=== PATIENT | female | born 1955 | race Caucasian/White ===

== ENCOUNTER 2016-10-24 05:50 | Observation (INO) | payer OTHER ==
[~2016-10-24] VITALS: Ht 165.1 cm; Wt 117.0 kg
[~2016-10-24 05:50] MED LIST: ALPR0.25 PO; ALPR0.5T3 PO; GABA100C4 PO; HYDR-3583 PO; IBUP800T23 PO; PROM12.54 PO; SOMA350T PO; TRIA37.53 PO
[2016-10-24] MEDS ORDERED: LACTATED RINGER'S 1000 ML IV PRN (06:15)
[2016-10-24] MEDS ORDERED: METOPROLOL TARTRATE 25 MG TAB PO PRN (06:15)
[2016-10-24] MEDS ORDERED: SODIUM CHLOR 0.9% 1000 ML INJ 1,000 ML IV SCH (06:15)
[2016-10-24] MEDS ORDERED: VANCOMYCIN HCL 1000 MG ON-CALL/NS 250 ML IV SCH ×2 (06:15)
[2016-10-24] MEDS ORDERED: CHLORHEXIDINE GLUCONATE 2 % 1 PACK (2 CLOTHS) TOPICAL PRN (06:15)
[2016-10-24] MEDS ORDERED: INSULIN HUMAN REGULAR 1,000 UNITS/10 ML VIAL SQ PRN (06:15)
[2016-10-24] MEDS ORDERED: POVIDONE IODINE 5% (ANTISEPSIS KIT) 4 APPLICATIONS EACH NARE PRN (06:15)
[2016-10-24] MEDS ORDERED: SODIUM CHLORID 0.9% 500 ML IV PRN (06:15)
[2016-10-24 06:53] VITALS: BP 141/71; PULSE 85; RESP 18; TEMP 98.6; O2SAT 97
[2016-10-24] MEDS ORDERED: THROMBIN (TOPICAL) 5,000 UNIT VIAL ONE (07:27)
[2016-10-24] MEDS ORDERED: ceFAZolin 2 GM PREMIX 50 ML ONE (07:27)
[2016-10-24] MEDS ORDERED: MICROFIBRILLAR COLLAGEN HEMOSTAT 70 X 35 MM BANDAGE ONE (07:27)
[2016-10-24] MEDS ORDERED: GELFOAM SIZE 100 ONE (07:27)
[2016-10-24] MEDS ORDERED: GENTAMICIN SULFATE 80 MG/2 ML VIAL ONE (07:28)
[2016-10-24] MEDS ORDERED: MIDAZOLAM HCL 5 MG/5 ML VIAL ONE (08:06)
[2016-10-24] MEDS ORDERED: APREPITANT 40 MG CAP ONE (08:06)
[2016-10-24] MEDS ORDERED: LACTATED RINGER'S 1000 ML INJ 1,000 ML IV ONE (08:52)
[2016-10-24] MEDS ORDERED: PROPOFOL 200 MG/20 ML AMP IV ONE (08:52)
[2016-10-24] MEDS ORDERED: PHENYLEPH/NS 1000 MCG/10 ML SYR IV ONE (08:52)
[2016-10-24] MEDS ORDERED: NEOSTIGMINE 3 MG/3 ML SYR IV ONE (08:52)
[2016-10-24] MEDS ORDERED: ONDANSETRON HCL 4 MG/2 ML VIAL IV PUSH ONE (08:52)
[2016-10-24] MEDS ORDERED: MORPHINE SULFATE 4 MG/ML INJ IV PUSH PRN ×2 (11:45)
[2016-10-24] MEDS ORDERED: ALPRAZolam 0.25 MG TAB PO PRN (11:45)
[2016-10-24] MEDS ORDERED: ACETAMINOPHEN/HYDROcodone 325 MG/10 MG TAB PO PRN (11:45)
[2016-10-24] MEDS ORDERED: ACETAMINOPHEN 325 MG TAB PO PRN (11:45)
[2016-10-24] MEDS ORDERED: SODIUM CHLORIDE 0.9% FLUSH 5 ML FLUSH IVF PRN (11:45)
[2016-10-24] MEDS ORDERED: DO NOT ADM ANY ANTICOAGULANT DRUGS PRN (12:00)
[2016-10-24] MEDS ORDERED: DEXAMETHASONE SOD PHOS 4 MG/ML VIAL IV PUSH SCH (12:00)
[2016-10-24] MEDS ORDERED: fentaNYL CITRATE 250 MCG/5 ML AMP ONE (12:05)
[2016-10-24] MEDS ORDERED: MORPHINE SULFATE 4 MG/ML INJ ONE (12:05)
[2016-10-24] MEDS ORDERED: *morphine SULFATE 8 MG/ML PERIprocedure ONLY ONE ×2 (12:17→12:25)
[2016-10-24] MEDS: NS + KCL 20 MEQ INJ 1,000 ML IV SCH ×2 (12:20→20:53)
[2016-10-24] MEDS ORDERED: *HYDROmorphone PF 1 MG VIAL PERIprocedural Use ONLY ONE ×3 (12:35→12:59)
--- NOTE | 2016-10-24 12:54 | PD.OP ---
Operative Report Date of Surgery: October 24, 2016 Preoperative Diagnosis: Cervical spinal stenosis Postoperative Diagnosis: Cervical spinal stenosis Procedure: C5-6, C6-7 anterior cervical discectomy, interbody arthodhesis using PEEK cage filled with autologous bone graft, Simplicity plate and screws. Anesthesia: general Surgeon: Michele Tyler Mobile Sales Assistant(s): Lacie Farr Operation and Findings: INDICATIONS FOR THE PROCEDURE ms Arias is a 61 year-old female who presented with intractable neck pain and clinical evidence of C6 and C7 upper extremity radiculopathy. She was found to have significant spondylosis with stenosis. She has failed maximum nonsurgical management including multiple modalities of conservative treatment as well as pain management interventions by an interventional pain specialist. A surgical decompression and arthrodhesis were indicated. The [id number] details of the procedure, indications, alternatives, risks and potential complications were fully discussed with her. She fully understood. All The questions were answered. No guarantees were given. The patient voiced requesting the procedure and provided informed consents. The patient was offered the alternative of delaying the procedure and continuing with nonsurgical management. DETAILS OF THE SURGICAL PROCEDURE After the induction of general anesthesia, endotracheal intubation was performed. A May catheter, bilateral LYDIA hose, and sequential compression devices were placed and kept throughout the procedure. Placement of electrodes for neurophysiological monitoring of the somato sensorial evoked potentials. motor evoked potentials, and EMG as well as laryngeal nerve monitoring was achieved. The patient was positioned supine on a Earnest table with the head over a gel doughnut. All pressure points were carefully padded with eggcrate mattress. The eyes were tapped shut after ointment was applied by the anesthesiologist to prevent corneal abrasion. A Dory hugger was placed over the exposed lower body to maintain control of the core body temperature. The electrophysiological team placed the needles and electrodes in their proper location and baseline SSEP's and motor evoked potentials were registered prior and after positioning and endotracheal intubation. The anterior cervical region was prepped and draped in the usual sterile fashion. A localizing x-ray was performed with a C-arm. The surgical procedure was performed in several steps as follow: SURGICAL APPROACH A skin incision was made along the inferior cervical crease with a #10 blade. The dissection was carried out through the platysma exposing the sternocleidomastoid muscle. The cervical spine was approached following the fascial layers of the neck just medial to the anterior border of the sternocleidomastoid and carotid sheath by a combination of sharp and dull dissection. The omohyoid muscle was identified and carefully dissected laterally and the deep cervical fascia was carefully opened. The longus colli muscles were retracted to each side of the midline. A marker was placed at the disc space C5-6 and a cross-table lateral x-ray performed with a C-arm. SURGICAL DECOMPRESSION In order to decompress the anterior surface of the spinal cord it was necessary to preform a microsurgical resection of the disk at C5-6 and C6-7. At this point in the procedure the operating microscope was draped in the usual sterile fashion and brought to the field. The rest of the surgical procedure was performed using microdissection technique with the exception of the closure. Under the operative microscopic, a self-retaining retractor was placed underneath the longus colli muscle. Anterior osteophite spurs werte carefully removed with the Leksell. The annulus at C5-6 and C6-7 were incised with a #15 blade and microdiscectomy was then carefully carried out using angled curets and pituitary forceps. There were osteophitic/disk complexes mass effect and compression of the dural sac and nerve roots. The posterior longitudinal ligament was then elevated with an angled curet and incised with a 15 bladed knife. A careful resection of the posterior longitudinal ligament was carried out using a thin footplate 2 mm Kerrison. A nerve hook was used to assess the epidural space behind the vertebral bodies C5, C6, and C7 in search for residual disk fragments. The margins of the posterior endplates at C5-6 and C6- 7 were carefully drilled and undercut with a TPS drill under high magnification. The decompression was then carried out laterally, and a bilateral foraminotomy was performed with a 2mm thin foot Kerrison. Then the vertebral bodies above and below the disk space were undercut using a 2 mm thin foot Kerrison. The epidural space was the systematically assessed with a nerve hook in search for disk fragments. An excellent decompression was achieved in both, the dural sac and bilateral exiting nerve roots. The incision was then irrigated with a large amount of antibiotic solution INTERBODY ARTHRODHESIS In order to avoid collapse of the disk space which would result in bilateral foraminal stenosis, and to increase the chances of a successful fusion, it was necessary to place an interbody cage filled with autologous bone. At this point of the procedure, the superior and inferior endplates were then evenly decorticated with a TPS drill. The use of a drill in combination with a curette allowed me to systematically remove the cartilaginous endplates, exposing healthy bone for the interbody arthrodesis. Fourteen millimeters distraction pins were then placed at the vertebral bodies adjacent to the disk space, and gentle distraction was applied. The size of the interbody cage was then assessed using different size spacers, and a rasp was used to ensure no residual cartilage. A PEEK cage of the appropriate size was selected, and the interbody arthrodesis was then preformed by carefully impacting a PEEK cage filled with autologous bone graft to the disc spaces C5-6 and C6-7. An excellent position of the cage was achieved. This was was confirmed anatomically by feeling the space posterior to the implant and distance to the anterior surface of the dural sac. Radiological confirmation of the position was performed with a cross lateral xray performed with the C-arm. INTERNAL INSTRUMENTAL FIXATION Once that the interbody device was in an appropriate position, it was necessary to stabilize the spine with anterior instrumentation. Anterior instrumentation has demonstrated to increase the rate of fusion, accelerate the patient's recovery, and decrease the rate of failed interbody grafts. At this point of the procedure, the distance between the vertebral bodies was carefully measures, and a Simplicity plate was brought to the field and presented in front of the vertebral bodies C5, C6, and C7. Mediator holes were then drilled using the TPS drill, and the plate was then secured to the spine using self-drilling, self-tapping screws. Initially, the inferior right screw was inserted, followed by placement of the contralateral upper screw. The remanding screws were sequentially placed in a contra-lateral fashion. A proper purchase was achieved with all screws and the position of the cage, plate and screws, and alignment of the spine was assessed anatomically by direct visualization, and radiologically by performing a cross lateral xray of the cervical spine with the C-arm. CLOSURE The incision was irrigated with several liters of antibiotic solution. Hemostasis was achieved with a bipolar. The screws were locked to prevent backing out. A 7 mm Earnest-Marin drain was left in the prevertebral space and externalized through a separate stab incision. The incision was then closed in layers. 3-0 Vicryl with interrupted sutures was used to close the platysma and subcutaneous tissue. The skin was closed with 4-0 running subcuticular Vicryl and glue was applied to the skin. The drain was secured with a 3-0 nylon. At the end of the procedure the sponge, needle and instrument counts were all correct. The estimated blood loss was less than 70-80 cc. No blood transfusion was given. No intraoperative complications occurred. The patient received prophylactic antibiotics. The patient was then extubated and transferred to the recovery room in stable condition. Michele Tyler MD October 24, 2016 12:54
[2016-10-24] MEDS ORDERED: HYDR-3583 PO (12:55)
[2016-10-24 13:25] VITALS: BP 139/82; PULSE 86; RESP 16; TEMP 98.8; O2SAT 94
[2016-10-24] MEDS: DEXAMETHASONE SOD PHOS 4 MG/ML VIAL IV PUSH SCH ×2 (15:55→20:52)
[2016-10-24 16:00] VITALS: BP 136/64; PULSE 84; RESP 18; TEMP 96.6; O2SAT 96
--- NOTE | 2016-10-24 16:04 | HHI.DCPOC ---
Discharge Care Plan Diagnosis: (1) Status post cervical arthrodesis Goals to Promote Your Health * To prevent worsening of your condition and complications * To maintain your health at the optimal level Directions to Meet Your Goals Take your medications as prescribed Follow your dietary instruction Follow activity as directed Keep your appointments as scheduled Take your immunizations and boosters as scheduled If your symptoms worsen call your PCP, if no PCP go to Urgent Care Center or Emergency Room Smoking is Dangerous to Your Health. Avoid second hand smoke Call the 24-hour hour crisis hotline for domestic abuse at Gaby Regalado October 24, 2016 16:03
[2016-10-24] MEDS: ceFAZolin 2 GM PREMIX 50 ML IV SCH (16:40)
[2016-10-24] MEDS: ACETAMINOPHEN/HYDROcodone 325 MG/10 MG TAB PO PRN ×2 (17:44→21:58)
[2016-10-24] MEDS: CARISOPRODOL 350 MG TAB PO PRN (18:14)
[2016-10-24 19:43] VITALS: BP 130/61; PULSE 94; RESP 18; TEMP 97.2; O2SAT 92
[2016-10-24] MEDS: PROMETHAZINE HCL 25 MG TAB PO SCH (20:51)
[2016-10-24] MEDS: DOCUSATE SODIUM 100 MG CAP PO SCH (20:51)
[2016-10-24] MEDS: SODIUM CHLORIDE 0.9% FLUSH 5 ML FLUSH IVF SCH (20:53)
[2016-10-24] MEDS ORDERED: ALPRAZolam 0.5 MG TAB PO SCH (21:00)
[2016-10-24] MEDS ORDERED: GABAPENTIN 100 MG CAP PO SCH (21:00)
[2016-10-24 21:29] LABS: BICARBONATE 25.5 MEQ/L (21.0-32.0); POTASSIUM 4.3 MEQ/L (3.5-5.1)
[2016-10-24 23:28] VITALS: BP 106/52; PULSE 89; RESP 18; TEMP 96.8; O2SAT 96
[2016-10-25] MEDS: DEXAMETHASONE SOD PHOS 4 MG/ML VIAL IV PUSH SCH ×3 (02:12→14:17)
[2016-10-25] MEDS: ceFAZolin 2 GM PREMIX 50 ML IV SCH ×2 (02:12→10:01)
[2016-10-25] MEDS: ACETAMINOPHEN/HYDROcodone 325 MG/10 MG TAB PO PRN ×4 (02:14→18:02)
[2016-10-25 04:07] VITALS: BP 123/56; PULSE 83; RESP 18; TEMP 97.7; O2SAT 94
[2016-10-25] MEDS: NS + KCL 20 MEQ INJ 1,000 ML IV SCH ×2 (06:16→14:14)
[2016-10-25] MEDS: CARISOPRODOL 350 MG TAB PO PRN ×2 (06:16→14:17)
[2016-10-25 07:17] VITALS: BP 120/57; PULSE 83; RESP 18; TEMP 97; O2SAT 95
[2016-10-25] MEDS ORDERED: PANTOPRAZOLE SOD 40 MG DELAYED RELEASE TAB PO SCH (09:00)
[2016-10-25] MEDS: SODIUM CHLORIDE 0.9% FLUSH 5 ML FLUSH IVF SCH (09:00)
[2016-10-25] MEDS ORDERED: TRIAMTERENE/HCTZ 37.5 MG/25 MG CAP PO SCH (09:00)
[2016-10-25 09:20] VITALS: O2SAT 93
[2016-10-25] MEDS: PROMETHAZINE HCL 25 MG TAB PO SCH (10:00)
[2016-10-25] MEDS: DOCUSATE SODIUM 100 MG CAP PO SCH (10:01)
[2016-10-25 11:41] VITALS: BP 137/66; PULSE 69; RESP 20; TEMP 97; O2SAT 91
[2016-10-25 12:00] VITALS: O2SAT 97
--- NOTE | 2016-10-25 13:44 | PD.CONS ---
HPI Service [facility] Hospitalists Consult Requested By Dr. Tyler Reason for Consult Medical Management Primary Care Physician Marsha Berumen Jr, MD Diagnoses: History of Present Illness Ms. Arias is a pleasant 59 y/o female with osteoarthritis, HTN, hyperlipidemia, hypothyroidism, fibromyalgia, and GERD. Pt admitted by Dr. Tyler 10/24/16 and underwent C5-6, C6-7 anterior cervical discectomy, interbody arthrodesis using PEEK cage filled with autologous bone graft, Simplicity plate and screws. Pt is receiving prn norco for pain and is planning to go to [facility] following discharge. Review of Systems Constitutional: DENIES: Diaphoretic episodes, Fatigue, Fever, Weight gain, Weight loss, Chills, Dizziness, Change in appetite, Night Sweats Endocrine: DENIES: Heat/cold intolerance, Polydipsia, Polyuria, Polyphagia Eyes: DENIES: Blurred vision, Diplopia, Eye inflammation, Eye pain, Vision loss , Photosensitivity, Double Vision Ears, nose, mouth, throat: DENIES: Tinnitus, Hearing loss, Vertigo, Nasal discharge, Oral lesions, Throat pain, Hoarseness, Ear Pain, Running Nose, Epistaxis, Sinus Pain, Toothache, Odynophagia Respiratory: DENIES: Apneas, Cough, Snoring, Wheezing, Hemoptysis, Sputum production, Shortness of breath Cardiovascular: DENIES: Chest pain, Palpitations, Syncope, Dyspnea on Exertion , PND, Lower Extremity Edema, Orthopnea, Claudication Gastrointestinal: DENIES: Abdominal pain, Black stools, Bloody stools, BRB per rectum, Constipation, Diarrhea, GERD, Nausea, Reflux, Vomiting, Difficulty Swallowing, Anorexia Genitourinary: COMPLAINS OF: Dysmenorrhea, DENIES: Urinary frequency, Urinary incontinence, Urgency, Hematuria, Dysuria, Nocturia Musculoskeletal: DENIES: Joint pain, Muscle aches, Stiffness, Joint Swelling, Back pain, Neck pain Integumentary: DENIES: Abnormal pigmentation, Pruritus, Rash, Nail changes, Breast masses, Breast skin changes, Nipple discharge Hematologic/lymphatic: DENIES: Bruising, Lymphadenopathy Immunologic/allergic: DENIES: Eczema, Urticaria Neurologic: DENIES: Abnormal gait, Headache, Localized weakness, Paresthesias, Seizures, Speech Problems, Tremor, Poor Balance Psychiatric: DENIES: Anxiety, Confusion, Mood changes, Depression, Hallucinations, Agitation, Suicidal Ideation, Homicidal Ideation, Delusions, History of Bipolar, History of Schizophrenia Past Family Social History Past Medical History Adrenal cortical adenoma Anxiety HTN Chondrocalcinosis of the lower leg DDD Depression Diabetes mellitus Fibromyalgia GERD Hyperlipidemia Hypothyroidism Morbid obesity Osteoarthritis LUDMILA Thyroid nodule Vertigo Vitamin D deficiency Past Surgical History Appendectomy Right foot surgery MAUREEN Left knee surgery Reported Medications Reported Meds & Active Scripts Active Hydrocodone-Acetaminophen 10-325 mg Tab 1 Tab PO Q8HR PRN Reported Promethazine (Promethazine HCl) 12.5 Mg Tab 25 Mg PO BID Triamterene-Hydrochlorothiazide 37.5-25 Mg Cap 1 Cap PO DAILY Soma (Carisoprodol) 350 Mg Tab 350 Mg PO Q8HR PRN Hydrocodone-Acetaminophen 10-325 mg Tab 1 Tab PO Q6H PRN Alprazolam 0.5 Mg Tab 0.5 Mg PO HS Ibuprofen 800 Mg Tab 800 Mg PO TID Alprazolam 0.25 Mg Tab 1 Tab PO BID PRN Gabapentin 100 Mg Cap 1 Cap PO HS Allergies: Coded Allergies: Flu Vaccine (Verified Allergy, Severe, Swelling IN ARM AND FEVER, 10/24/16) Neurontin (Unverified Allergy, Severe, SEIZURES WHEN ON DOSES, 10/24/16) Pneumococcal Vaccine (Verified Allergy, Severe, ARM SWELLING , FEVER, 10/24) Prednisone (Verified Allergy, Severe, SIGNIFICANT WT GAIN AND FLUID RETENTION, 10/24/16) WEIGHT GAIN Shrimp (Unverified Allergy, Severe, EXACERBATES FIBROMYALGIA, 10/24/16) Sulfa (Verified Allergy, Unknown, hives, 10/24/16) Inderal (Verified Adverse Reaction, Severe, vomiting, 10/24/16) Family History Noncontributory Social History - Pt is a current smoker - Pt denies alcohol - Pt denies illicit street drugs Physical Exam Vital Signs Vital Signs Date Time Temp Pulse Resp B/P Pulse Ox O2 Delivery O2 Flow Rate FiO2 10/25/16 11:41 97.0 69 20 137/66 91 10/25/16 09:20 93 21 10/25/16 07:17 97.0 83 18 120/57 95 10/25/16 04:07 97.7 83 18 123/56 94 10/24/16 23:28 96.8 89 18 106/52 96 10/24/16 21:11 Room Air 10/24/16 19:43 97.2 94 18 130/61 92 10/24/16 18:56 Nasal Cannula 2.00 10/24/16 16:00 96.6 84 18 136/64 96 Physical Exam GENERAL: This is a well-nourished, well-developed patient, in no apparent distress. SKIN: No rashes, ecchymoses or lesions. Cool and dry. HEAD: Atraumatic. Normocephalic. No temporal or scalp tenderness. EYES: Pupils equal round and reactive. Extraocular motions intact. No scleral icterus. No injection or drainage. ENT: Nose without bleeding, purulent drainage or septal hematoma. Throat without erythema, tonsillar hypertrophy or exudate. Uvula midline. Airway patent. NECK: Trachea midline. No JVD or lymphadenopathy. Supple, nontender, no meningeal signs. CARDIOVASCULAR: Regular rate and rhythm without murmurs, gallops, or rubs. RESPIRATORY: Clear to auscultation. Breath sounds equal bilaterally. No wheezes , rales, or rhonchi. GASTROINTESTINAL: Abdomen soft, non-tender, nondistended. No hepato-splenomegaly , or palpable masses. No guarding. MUSCULOSKELETAL: Extremities without clubbing, cyanosis, or edema. No joint tenderness, effusion, or edema noted. No calf tenderness. Negative Homans sign bilaterally. NEUROLOGICAL: Awake and alert. Cranial nerves II through XII intact. Motor and sensory grossly within normal limits. Five out of 5 muscle strength in all muscle groups. Normal speech. Laboratory Laboratory Tests Test 10/24/16 19:59 Sodium Level 137 Potassium Level 4.3 Chloride Level 102 Carbon Dioxide Level 25.5 Anion Gap 10 Blood Urea Nitrogen 17 Creatinine 1.17 Estimat Glomerular Filtration 47 Rate Random Glucose 210 Calcium Level 8.3 Result Diagram: 10/24/161958 Assessment and Plan Problem List: (1) Degenerative arthritis of cervical spine Status: Acute Plan: - Pt underwent C5-6, C6-7 anterior cervical discectomy, interbody arthodhesis using PEEK cage filled with autologous bone graft, Simplicity plate and screws. performed by Dr. Tyler 10/24/16 - norco prn - decadron - PT - DVT prophylaxis - Pt will transfer to [facility] upon discharge (2) Hypertension, benign Status: Chronic Plan: - stable - triamterene (3) Fibromyalgia Status: Chronic Plan: - norco prn (4) Diabetes mellitus type 2, diet-controlled Status: Acute Plan: - ADA Ricardo Srinivasan DO October 25, 2016 13:44
[2016-10-25] MEDS ORDERED: SOMA350T PO (13:59)
[2016-10-25] MEDS ORDERED: ALPR0.5T3 PO (13:59)
[2016-10-25] MEDS ORDERED: ALPR0.25 PO (13:59)
[2016-10-25 16:00] VITALS: BP 142/64; PULSE 78; RESP 20; TEMP 97.4; O2SAT 94
[2016-10-25] MEDS ORDERED: SOD PHOSPHATE/SOD BIPHOSPHATE (ADULT) ENEMA 133ML RECTAL ONE (16:00)
--- NOTE | 2016-10-28 14:37 | HHI.DS ---
Discharge Summary Admission Date October 24, 2016 at 11:44 Discharge Date: October 25, 2016 Admitting Diagnosis s/p ACDF (1) Degenerative arthritis of cervical spine ICD Code: M47.812 (2) Hypertension, benign ICD Code: I10 (3) Fibromyalgia ICD Code: M79.7 (4) Diabetes mellitus type 2, diet-controlled ICD Code: E11.9 Brief History Ms. Arias is a 61 year-old female who presented with intractable neck pain and clinical evidence of C6 and C7 upper extremity radiculopathy. She was found to have significant spondylosis with stenosis. She has failed maximum nonsurgical management including multiple modalities of conservative treatment as well as pain management interventions by an interventional pain specialist. A surgical decompression and arthrodesis were indicated. CBC/BMP: 10/24/161958 Hospital Course Ms. Arias underwent a C5-6, C6-7 anterior cervical discectomy, interbody arthrodesis using PEEK cage filled with autologous bone graft, plate and screws on October 24, 2016. Her surgery went well without complications. She was cleared medically for discharge. Pt Condition on Discharge: Stable Discharge Disposition: Discharge to SNF Discharge Instructions DIET: Follow Instructions for: Heart Healthy Diet ACTIVITIES You can perform: Weight Bearing As Deric ADDITIONAL Activity Instructio: Avoid strenuous activities, heavy lifting, overhead activities, repetitive bending, twisting, pushing, pulling or any activities which might result in stress over the spine. Avoid situtation that will put at risk for falls. Use assistive device as needed for walking. Wear cervical collar at all times, may remove only with meals. Follow up Referrals: Neurosurgery - 2 Weeks with Michele Tyler MD PCP Follow-up - [address] Marsha Barragan New Medications: Hydrocodone-Acetaminophen (Hydrocodone-Acetaminophen) 10-325 mg Tab 1 TAB PO Q8HR PRN PAIN SCALE 1 TO 5 #90 TAB Continued Medications: Alprazolam (Alprazolam) 0.25 Mg Tab 1 TAB PO BID PRN ANXIETY #60 Ref 1 MG (This prescription has been renewed) Alprazolam (Alprazolam) 0.5 Mg Tab 0.5 MG PO HS Anxiety and/or Insomnia #30 Ref 1 TAB (This prescription has been renewed) Carisoprodol (Soma) 350 Mg Tab 350 MG PO Q8HR PRN PAIN #60 Ref 0 TAB (This prescription has been renewed) Gabapentin (Gabapentin) 100 Mg Cap 1 CAP PO HS #90 Hydrocodone-Acetaminophen (Hydrocodone-Acetaminophen) 10-325 mg Tab 1 TAB PO Q6H PRN PAIN Ref 0 TAB Promethazine (Promethazine) 12.5 Mg Tab 25 MG PO BID NAUSEA OR VOMITING Ref 0 TAB Triamterene-Hydrochlorothiazide (Triamterene-Hydrochlorothiazide) 37.5-25 Mg Cap 1 CAP PO DAILY #30 Ref 0 CAP Discontinued Medications: Ibuprofen (Ibuprofen) 800 Mg Tab 800 MG PO TID Arthritis Pain Ref 0 TAB Gaby Regalado October 28, 2016 14:37
== END 2016-10-25 19:00 ==
LOC: HSDC 05:50 → HSDI 11:44 → N06A 13:30
PROVIDERS: ADMIT Neurological Surgery; ATTEND Neurological Surgery
DX: M48.02 Spinal stenosis, cervical region (principal); M54.12 Radiculopathy, cervical region
CPT/HCPCS: 00600; 20936; 22551; 22552; 22853; 76000; 80048; 94150; 97162; C1713; G0378; G8987; G8988; J0690; J1100; J1170; J1580; J2250; J2270; J2370; J2405; J2710; J3010; J3370; J3480; J7050; J7120; J8501; L0150; L0172; Q0169

== ENCOUNTER 2017-12-25 17:00 | Observation (INO) ==
--- NOTE | 2017-12-25 19:45 | XR ---
EXAM DATE: 12/25/2017 7:42 PM EDT AGE/SEX: 62 years / Female INDICATIONS: Shortness of breath and chest pressure. CLINICAL DATA: This is the patient's initial encounter. Patient reports that signs and symptoms have been present for 1 day and indicates a pain score of 5/10. MEDICAL/SURGICAL HISTORY: . Fibromyalgia. None. COMPARISON: [facility], CHEST PA & LAT, 12/29/2014. . FINDINGS: The heart size is borderline enlarged. The lungs are clear. No effusion is seen. Surgical hardware se en in the cervical spine. CONCLUSION: Borderline cardiomegaly. Electronically signed by: Viral Rick MD 12/25/2017 7:44 PM EDT
[2017-12-25 20:02] LABS: Baso # (Auto) 0.1 th/mm3 (0.0-0.2); Baso % (Auto) 0.9 % (0.0-2.0); Eos # (Auto) 0.1 th/mm3 (0.0-0.4); Hemoglobin 12.8 gm/dL (11.6-15.3); Lymph # (Auto) 3.7 th/mm3 (1.0-4.8); Lymph % (Auto) 31.7 % (9.0-44.0); Mean Corpuscular HGB Conc 32.8 % (32.0-36.0); Mean Corpuscular Hemoglobin 29.3 pg (27.0-34.0); Mean Corpuscular Volume 89.3 fL (80.0-100.0); Mean Platelet Volume 10.9 fL (7.0-11.0); Mono # (Auto) 0.6 th/mm3 (0.0-0.9); Mono % (Auto) 4.9 % (0.0-8.0); Neut # (Auto) 7.3 th/mm3 (1.8-7.7); Neut % (Auto) 61.5 % (16.0-70.0); Platelet Count 265 th/mm3 (150-450); Red Blood Count 4.36 mil/mm3 (4.00-5.30); Red Cell Distribution Width 15.6 % (11.6-17.2); White Blood Count 11.8 th/mm3 (4.0-11.0)
[2017-12-25 20:15] LABS: Activated Partial Thrombo Time 22.6 sec (24.3-30.1); INR 0.9 Ratio; Prothrombin Time 9.6 sec (9.8-11.6)
[2017-12-25 20:25] LABS: Anion Gap 7 meq/L (5-15); Blood Urea Nitrogen 33 mg/dL (7-18); Calcium 9.5 mg/dL (8.5-10.1); Carbon Dioxide 29.4 meq/L (21.0-32.0); Chloride 102 meq/L (98-107); Glomerular Filtration Rate 28 mL/min (>89); Glucose,Random 140 mg/dL (74-106); Potassium 3.5 meq/L (3.5-5.1); Sodium 138 meq/L (136-145)
--- NOTE | 2017-12-25 20:26 | ED ---
HPI General Chief complaint: Recheck/Abnormal Lab/Rx Stated complaint: cardiac Time Seen by Provider: 12/25/17 19:15 Source: patient, family and RN notes reviewed Mode of arrival: ambulatory History of Present Illness HPI narrative: 62yF sent in by PMD for elevated D dimer. The patient states that she's had abdominal "bloating" and dyspnea for the past several weeks, has been having a series of tests with her primary care doctor, and received a phone call today that her D dimer was elevated and directing her to go to the emergency department for further evaluation. She denies cough but reports dyspnea at rest and on exertion, episodes of substernal chest "discomfort" and palpitations which are unrelated to activity. No known history of VTE, does not take any anticoagulants or antiplatelets. Related Data Home Medications Medication Instructions Recorded Confirmed albuterol sulfate 2.5 mg INHALATION Q4H PRN 12/25/17 12/25/17 alprazolam 0.25 mg PO BID PRN 12/25/17 12/25/17 carisoprodol 350 mg PO Q8HR PRN 12/25/17 12/25/17 cyanocobalamin (vitamin B-12) 1,000 mcg PO DAILY 12/25/17 12/25/17 [Vitamin B-12] gabapentin 300 mg PO TID 12/25/17 12/25/17 hydrocodone-acetaminophen 1 tab PO Q6H PRN 12/25/17 12/25/17 ibuprofen 800 mg PO TID PRN 12/25/17 12/25/17 promethazine 25 mg PO Q6H PRN 12/25/17 12/25/17 triamterene-hydrochlorothiazid 1 cap PO DAILY 12/25/17 12/25/17 Allergies Allergy/AdvReac Type Severity Reaction Status Date / Time gabapentin Allergy Severe SEIZURES Verified 12/25/17 17:25 WHEN ON DOSES Influenza Virus Vaccines Allergy Severe Swelling Verified 12/25/17 17:25 IN ARM AND FEVER pneumococcal vaccine Allergy Severe ARM Verified 12/25/17 17:25 SWELLING , FEVER prednisone Allergy Severe SIGNIFICANT Verified 12/25/17 17:25 WT GAIN AND FLUID RETENTION shrimp Allergy Severe EXACERBATES Verified 12/25/17 17:25 FIBROMYALGIA Sulfa (Sulfonamide Allergy Unknown hives Verified 12/25/17 17:25 Antibiotics) propranolol AdvReac Severe vomiting Verified 12/25/17 17:25 Review of Systems Except as stated in HPI: all other systems reviewed are negative Constitutional Reports chills ENT Denies nasal congestion Cardiovascular Reports chest pain Respiratory Reports cough Gastrointestinal Reports nausea Genitourinary Denies dysuria Musculoskeletal Denies back pain Neurologic Denies confusion Psychiatric Denies confusion [facility] History History Provided By: Patient Medical History Medical History Fibromyalgia (Acute) High cholesterol (Acute) Surgical History Surgical History Hx of knee surgery (Acute) Hx of neck surgery (Acute) Social History Social History Second Hand Smoke Exposure: Yes Smoking Status: Current every day smoker Tobacco Type: Cigarettes How Often Do You Have a Drink Containing Alcohol: Never Recent Travel in [facility] within the Last 8 Weeks: No Recent Out of Country Travel within the Last 8 Weeks: No Immunization History Tetanus Immunization: Unsure Hx Influenza Vaccine This Season: No Exam Const General: healthy appearing and no acute distress HENWV Head: normocephalic and atraumatic Face and sinus: normal facial exam Eyes General: appearance normal, both eyes and all related structures Pupils: PERRL Chest Chest: normal inspection of the chest Resp Effort & Inspection: normal respiratory effort Auscultation: no rhonchi and no wheezes Cardio Rate: regular rate Rhythm: regular rhythm GI Other: Distended, soft, non-tender throughout Skin General: no rashes or lesions noted Neuro General: alert, awake, oriented x3 and no focal motor deficits Extrem Other: 1+ pitting edema bilaterally Psych Affect: normal affect Course Initial Documented Vital Signs Temperature 98.9 F 12/25/17 17:20 Pulse Rate 108 H 12/25/17 17:20 Respiratory Rate 18 12/25/17 17:20 Blood Pressure 168/77 H 12/25/17 17:20 Pulse Oximetry 94 L 12/25/17 17:20 Last Documented Vital Signs Temperature 98.9 F 12/25/17 17:20 Pulse Rate 97 H 12/25/17 19:40 Respiratory Rate 16 12/25/17 19:40 Blood Pressure 195/81 H 12/25/17 19:40 Pulse Oximetry 96 12/25/17 19:40 Medical Decision Making MDM Narrative Medical decision making narrative: Assessment: 62yF presenting with chest pain, dyspnea, elevated D dimer Plan: EKG and monitor Labs CXR CTA chest Reassess Addendum: Patient found to have acute kidney injury, unable to get CTA chest this evening. She admits to using "a lot" of ibuprofen at home, which may be contributing to her JAMES. I discussed the case with Dr. Aaron of the internal medicine team; my overall suspicion for PE is low, so will hold off on systemic anticoagulation for tonight, with plan to get either V/Q scan or CTA if kidney function improves after hydration tomorrow. I explained these results and plan to the patient, who understands and agrees. Differential Diagnosis Differential Diagnosis: Differential diagnosis includes, but is not limited to: ACS, PE, pneumonia, pleural effusion, pulmonary edema Lab Data Lab results reviewed: Yes I reviewed the patient's lab results. Result diagrams: 12/25/17 19:42 12/25/17 19:42 Lab Results 12/25/17 12/25/17 12/25/17 Range/Units 19:42 19:42 19:42 WBC 11.8 H (4.0-11.0) th/mm3 RBC 4.36 (4.00-5.30) mil/mm3 Hgb 12.8 (11.6-15.3) gm/dL Hct 39.0 (35.0-46.0) % MCV 89.3 (80.0-100.0) fL MCH 29.3 (27.0-34.0) pg MCHC 32.8 (32.0-36.0) % RDW 15.6 (11.6-17.2) % Plt Count 265 (150-450) th/mm3 MPV 10.9 (7.0-11.0) fL Neut % (Auto) 61.5 (16.0-70.0) % Lymph % (Auto) 31.7 (9.0-44.0) % [place] % (Auto) 4.9 (0.0-8.0) % Eos % (Auto) 1.0 (0.0-4.0) % Baso % (Auto) 0.9 (0.0-2.0) % Neut # (Auto) 7.3 (1.8-7.7) th/mm3 Lymph # (Auto) 3.7 (1.0-4.8) th/mm3 [place] # (Auto) 0.6 (0.0-0.9) th/mm3 Eos # (Auto) 0.1 (0.0-0.4) th/mm3 Baso # (Auto) 0.1 (0.0-0.2) th/mm3 WBC Differential . Differential Comment Auto diff final PT 9.6 L (9.8-11.6) sec INR 0.9 Ratio APTT 22.6 L (24.3-30.1) sec Sodium 138 (136-145) meq/L Potassium 3.5 (3.5-5.1) meq/L Chloride 102 (98-107) meq/L Carbon Dioxide 29.4 (21.0-32.0) meq/L Anion Gap 7 (5-15) meq/L BUN 33 H (7-18) mg/dL Creatinine 1.83 H (0.50-1.00) mg/dL Estimated GFR 28 L (>89) mL/min Random Glucose 140 H (74-106) mg/dL Calcium 9.5 (8.5-10.1) mg/dL Troponin I Less than 0.02 L (0.02-0.05) ng/mL Imaging Data Radiologist's impression: Chest X-Ray 12/25/17 19:29 CONCLUSION: Borderline cardiomegaly. ECG Data Attestation: I personally reviewed and interpreted this ECG as follows: Interpretation: Rate: 90 BPM Rhythm: Sinus [place]: Normal Intervals: Normal intervals, no blocks, QTc 405 ms Q waves: None T waves: Upright, no inversions ST segments: No elevations or depressions Impression: Non-specific EKG, no changes as compared to EKG from 12/29/2014. Discharge Plan Discharge Disposition Patient Disposition: 30 Still Patient Discharge Condition Condition: Stable Discharge Details Diagnosis: Acute kidney injury, Dyspnea, D-dimer, elevated Physicians Team ED Provider: Joyce Chinchilla Primary Care Provider: Marsha Berumen Attending Provider: Talat Aaron Discharge Interventions Interventions: Vital Signs Last Done: 12/25/17 19:40 Status ED Status: Admitted Observation Patient
[2017-12-25] MEDS ORDERED: Sodium Chlor 0.9% Inj 500 ML IV.SIG ONE (20:30)
[2017-12-25] MEDS ORDERED: Carisoprodol 350 MG Tablet PO ONE (20:43)
[2017-12-25] MEDS ORDERED: Gabapentin 300 MG Capsule PO ONE (20:43)
[2017-12-25] MEDS ORDERED: ALPRAZolam 0.25 MG Tablet PO PRN (21:23)
[2017-12-25] MEDS ORDERED: Sod Chloride 0.9% Inj 1,000 ML IV.CONT SCH (21:30)
[2017-12-25] MEDS: Sod Chloride 0.9% Inj 1,000 ML IV.CONT SCH (23:01)
[2017-12-26] MEDS: Sod Chloride 0.9% Inj 1,000 ML IV.CONT SCH (08:12)
--- NOTE | 2017-12-26 08:17 | P.HPIM ---
History of Present Illness Primary Care Physician: Marsha Berumen MD Chief Complaint: SOB, abd bloating History of Present Illness: Mrs. Arias is a 62y/o female with HTN, anxiety, DM, GERD, ESTRADA, hypothyroidism and LUDMILA. Pt was sent to the ED by her PCP, Dr. Berumen, for a noted elevated D- Dimer. Pt states that she's been having issues with abdominal "bloating" and dyspnea for the past several weeks. She was undergoing outpt workup which noted a mildly elevated D-Dimer at 0.81. She was recommended to go to the ED for further evaluation with CTA. In the ED her renal function was worse than baseline with a Creatinine of 1.84. Review of her outpt labs indicated her Cr is typically between 1-1.3. She denies cough but reports that she has been experiencing some dyspnea and wheezing at rest and on exertion, as well as episodes of substernal chest "discomfort" and palpitations which are unrelated to activity. She reports that in the last month she was started on Incruse Ellipta once daily, Duoneb treatments BID and Ventolin 1-2 puffs Q4-6H as needed. No known history of VTE, does not take any anticoagulants or antiplatelets. She does reports that she has been driving back and forth to [place] where her sister lives more recently. She was seen in the ED in [place] on 12/15/17 with complaints of SOB, increased abdominal bloating and pain. She had a CT Scan Abd/pelvis which revealed a hepatomegaly with fatty infiltration of the liver and nonspecific subtle cutaneous edema in the right abdominal wall subcutaneous tissue. She reports that she has an appt with GI scheduled for Thursday and she has an Abd US and Carotid US scheduled for Thursday as an outpt. She had outpt PFTs performed two days ago, results not in the outpt system yet. Past Medical History Adrenal cortical adenoma Anxiety HTN Chondrocalcinosis of the lower leg DDD Depression Diabetes mellitus, Hgb A1C 6.4 in 10/2017 Fibromyalgia GERD ESTRADA Hyperlipidemia Hypothyroidism Morbid obesity Osteoarthritis LUDMILA Thyroid nodule Vertigo Vitamin D deficiency Tobacco use 2D echo (09/2010) - Poor quality, technically limited due to body habitus - Mild LVH, estimated EF 60-65% - Mild aortic regurg Past Surgical History C5-6, C6-7 anterior cervical discectomy, interbody arthrodesis using PEEK cage filled with autologous bone graft, Simplicity plate and screws on 10/24/[address] Tyler Left total knee arthroplasty on 01/02/[address] Mcghee Left knee arthroscopy on 09/04/[address] 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 Appendectomy Right foot surgery MAUREEN Left knee surgery Family History Father had a CVA at 42 Two brothers with CHF Social History (+) Tobacco use, pt smokes 0.5-1ppd x 40+ years Denies any alcohol, or illicit drug use - Diagnosis (1) D-dimer, elevated (2) Dyspnea (3) Acute kidney injury Review of Systems All other systems reviewed negative except as stated in HPI Constitutional: Denies chills, Denies fever(s), Denies night sweats Eyes: Denies change in vision, Denies loss of vision Ears, Nose, Mouth, and Throat: Denies dizziness, Denies poor balance, Denies sore throat Cardiovascular: Reports rapid, pounding, or irregular heartbeat, Reports shortness of breath, Reports shortness of breath with activity, Reports shortness of breath when lying down Respiratory: Reports wheezing, Denies cough Gastrointestinal: Reports bloating, Denies constipation, Denies loose stools, Denies nausea, Denies vomiting Musculoskeletal: Reports back pain, Reports body aches, Reports joint pain, Denies muscle weakness Skin/Breast: Denies rash Neurologic: Reports tingling/numbness/burning sensations Psychiatric: Reports anxiety, Reports panic attacks PMFSH - History History Provided By: Patient - Medical History Medical History: Medical History (Last Reviewed 12/25/17 @ 20:30 by Joyce Chinchilla DO) Fibromyalgia High cholesterol - Surgical History Surgical History: Surgical History (Last Reviewed 12/25/17 @ 20:30 by Joyce hCinchilla DO) Hx of knee surgery Hx of neck surgery - Tobacco History Second Hand Smoke Exposure: Yes Tobacco Use In Past 30 Days: Yes Smoking Status: Current every day smoker Tobacco Type: Cigarettes - Alcohol History How Often Do You Have a Drink Containing Alcohol: Never - Substance Use History Substance History: No History of Abuse - Travel History Recent Travel in the [place] Within the Last 8 Weeks: No Recent Travel Out of the Country Within the Last 8 Weeks: No - Immunization History Tetanus Immunization: Unsure Hx Influenza Vaccine This Season: No Medications and Allergies Allergies Allergy/AdvReac Type Severity Reaction Status Date / Time gabapentin Allergy Severe SEIZURES Verified 12/25/17 17:25 WHEN ON DOSES Influenza Virus Vaccines Allergy Severe Swelling Verified 12/25/17 17:25 IN ARM AND FEVER pneumococcal vaccine Allergy Severe ARM Verified 12/25/17 17:25 SWELLING , FEVER prednisone Allergy Severe SIGNIFICANT Verified 12/25/17 17:25 WT GAIN AND FLUID RETENTION shrimp Allergy Severe EXACERBATES Verified 12/25/17 17:25 FIBROMYALGIA Sulfa (Sulfonamide Allergy Unknown hives Verified 12/25/17 17:25 Antibiotics) propranolol AdvReac Severe vomiting Verified 12/25/17 17:25 Home Medications Medication Instructions Recorded Confirmed Type alprazolam 0.25 mg PO BID PRN 12/25/17 12/25/17 History carisoprodol 350 mg PO Q8HR PRN 12/25/17 12/25/17 History cyanocobalamin (vitamin B-12) 1,000 mcg PO DAILY 12/25/17 12/25/17 History [Vitamin B-12] gabapentin 300 mg PO TID 12/25/17 12/25/17 History hydrocodone-acetaminophen 1 tab PO Q6H PRN 12/25/17 12/25/17 History promethazine 25 mg PO Q6H PRN 12/25/17 12/25/17 History triamterene-hydrochlorothiazid 1 cap PO DAILY 12/25/17 12/25/17 History ipratropium-albuterol 3 ml INHALATION Q4-6H PRN 12/26/17 12/26/17 History umeclidinium [Incruse Ellipta] 1 inh INHALATION Q24H 12/26/17 12/26/17 History Active Medications: Active Medications Hydrocodone Bitart/Acetaminophen ([place] 10/325) 1 tab PO Q6H PRN PRN Reason: pain 3-10 Last Admin: 12/26/17 03:46 Dose: 1 tab Albuterol (Duoneb Neb (Prn)) 1 ampul NEB Q4HR NEB PRN PRN Reason: sob Alprazolam (Xanax) 0.25 mg PO BID PRN PRN Reason: Acute Pain Last Admin: 12/26/17 03:47 Dose: 0.25 mg Clonidine HCl (Catapres) 0.1 mg PO Q6H PRN PRN Reason: sbp > 170 Cyanocobalamin (Vitamin B12) 1,000 mcg PO DAILY PRIMITIVO Gabapentin (Neurontin) 300 mg PO BID PRIMITIVO Sodium Chloride (Ns Inj) 1,000 mls @ 100 mls/hr IV.CONT .Q10H PRIMITIVO Last Infusion: 12/26/17 06:13 Dose: 100 mls/hr Sodium Chloride (Ns Flush) 2 ml IV.FLUSH BID PRIMITIVO Sodium Chloride (Ns Flush) 2 ml IV.FLUSH PRN PRN PRN Reason: FLUSH AFTER USING IV ACCESS Exam Vital signs: Vital Signs 12/25/17 17:20 12/25/17 19:40 12/25/17 21:40 Temperature 98.9 F Pulse Rate 108 H 97 H 90 Respiratory Rate 18 16 16 Blood Pressure 168/77 H 195/81 H 162/99 H Pulse Oximetry 94 L 96 96 12/25/17 21:55 12/25/17 22:30 12/25/17 23:09 Temperature 97.8 F Pulse Rate 96 H 88 Respiratory Rate 20 Blood Pressure 135/62 Pulse Oximetry 95 97 12/26/17 03:33 Temperature 97.9 F Pulse Rate 78 Respiratory Rate 20 Blood Pressure 110/52 L Pulse Oximetry 95 Intake & Output 12/25/17 12/26/17 12/26/17 18:59 06:59 18:59 Intake Total 1199 / 1199 Balance 1199 / 1199 Weight 114.759 kg 114.759 kg Intake: IV 719 / 719 NS Inj 1,000 ML @ 100 mls/hr IV 719 / 719 .CONT .Q10H PRIMITIVO Rx#:[id number] Oral 480 / 480 Other: # Voids 2 Date of Last Bowel Movement 12/24/17 # Bowel Movements 0 Weight On Admission 114.759 kg Narrative: GENERAL: NAD, AAOx3 SKIN: Warm and dry. HEENT: Atraumatic. Normocephalic. Pupils equal and round. No scleral icterus. No injection or drainage. No nasal bleeding or discharge. Mucous membranes pink and moist. NECK: Trachea midline. No JVD. CARDIO: Regular rate and rhythm. RESP: No accessory muscle use. Clear to auscultation. Breath sounds equal bilaterally. ABD: +BS, semi-firm, non-tender, distended. Hepatic margins are palpable. EXT: Extremities without clubbing, cyanosis, or edema. No obvious deformities. NEURO: Awake and alert. No obvious cranial nerve deficits. Motor grossly within normal limits. Five out of 5 muscle strength in the arms and legs. Normal speech. PSYCHIATRIC: Appropriate mood and affect; insight and judgment normal. Results - Labs CBC & Chem 7: 12/25/17 19:42 12/26/17 07:40 Labs: Short CBC 12/25/17 Range/Units 19:42 WBC 11.8 H (4.0-11.0) th/mm3 Hgb 12.8 (11.6-15.3) gm/dL Hct 39.0 (35.0-46.0) % Plt Count 265 (150-450) th/mm3 BMP 12/25/17 19:42 Sodium 138 Potassium 3.5 Chloride 102 Carbon Dioxide 29.4 BUN 33 H Creatinine 1.83 H Calcium 9.5 Cardiac Enzymes 12/25/17 12/25/17 Range/Units 19:42 23:25 Troponin I Less than 0.02 L 0.04 (0.02-0.05) ng/mL - Imaging Impressions Chest X-Ray 12/25/17 19:29 CONCLUSION: Borderline cardiomegaly. Caprini VTE Risk Assessment Caprini VTE Risk Assessment: Moderate/High Risk (score >= 2) Caprini Risk Assessment Model: Point Value = 1 Point Value = 2 Point Value = 3 Point Value = 5 Age 41-60 Minor surgery BMI > 25 kg/m2 Swollen legs Varicose veins or History of unexplained or recurrent spontaneous Oral contraceptives or hormone replacement Sepsis (< 1 month) Serious lung disease, including pneumonia (< 1 month) Abnormal pulmonary function Acute myocardial infarction Congestive heart failure (< 1 month) History of inflammatory bowel disease Medical patient at bed rest Age 61-74 Arthroscopic surgery Major open surgery (> 45 min) Laparoscopic surgery (> 45 min) Malignancy Confined to bed (> 72 hours) Immobilizing plaster cast Central venous access Age >= 75 History of VTE Family history of VTE Factor V Leiden Prothrombin [id number] Lupus anticoagulant Anticardiolipin antibodies Elevated serum homocysteine Heparin-induced thrombocytopenia Other congenital or acquired thrombophilia Stroke (< 1 month) Elective arthroplasty Hip, pelvis, or leg fracture Acute spinal cord injury (< 1 month) Prophylaxis Regimen: Total Risk Factor Score Risk Level Prophylaxis Regimen 0-1 Low Early ambulation 2 Moderate Order ONE of the following: *Sequential Compression Device (SCD) *Heparin 5000 units SQ BID 3-4 Higher Order ONE of the following medications: *Heparin 5000 units SQ TID *Enoxaparin/Lovenox 40 mg SQ daily (WT < 150 kg, CrCl > 30 mL/min) *Enoxaparin/Lovenox 30 mg SQ daily (WT < 150 kg, CrCl > 10-29 mL/min) *Enoxaparin/Lovenox 30 mg SQ BID (WT < 150 kg, CrCl > 30 mL/min) AND/OR *Sequential Compression Device (SCD) 5 or more Highest Order ONE of the following medications: *Heparin 5000 units SQ TID (Preferred with Epidurals) *Enoxaparin/Lovenox 40 mg SQ daily (WT < 150 kg, CrCl > 30 mL/min) *Enoxaparin/Lovenox 30 mg SQ daily (WT < 150 kg, CrCl > 10-29 mL/min) *Enoxaparin/Lovenox 30 mg SQ BID (WT < 150 kg, CrCl > 30 mL/min) AND *Sequential Compression Device (SCD) Assessment and Plan - Assessment (1) D-dimer, elevated Code(s): R79.89 - Other specified abnormal findings of blood chemistry Status : Acute Plan: Elevated D-Dimer Palpitations - Pt is a 62y/o female with HTN, anxiety, DM, GERD, ESTRADA, hypothyroidism and LUDMILA. - Pt was sent to the ED by her PCP, Dr. Berumen, for a noted elevated D-Dimer along with complaints of SOB, abdominal bloating and palpitations the last few weeks. She was undergoing outpt workup which noted a mildly elevated D-Dimer at 0.81. Pt has been driving back and forth to [place] more recently as well. - In the ED her renal function was worse than baseline with a Creatinine of 1.84. Review of her outpt labs indicated her Cr is typically around 1 but recently had been as high as 1.3 earlier this month. CTA was unable to be performed in the ED and pt was admitted for observation and IVF. - Pt received IVF overnight, repeat Cr on 12/26 is 1.1 - CXR with borderline cardiomegaly - Check VQ scan today Dyspnea Tobacco use ?COPD - Pt has also had issues with dyspnea and wheezing at rest and on exertion, as well as episodes of substernal chest "discomfort" and palpitations which are unrelated to activity for the last 4-6 weeks. - Pt was started on Incruse Ellipta once daily, Duoneb treatments BID and Ventolin 1-2 puffs Q4-6H as needed. The wheezing has imrpoved but pt still with SOB. - She just had outpt PFTs two days ago, results unavailable at me at this time. - Check 2D echo - Cont. Duonebs Q4H PRN and BID scheduled - Resume her Incruse Ellipta JAMES - Pt has been taking Ibuprofen (800mg TID for many years) as an outpt and recently was evaluated with CT Abd/pelvis with IV contrast - Pt has been given IVF with improvement in her Cr to 1.1 on 12/26 - Encourage oral intake Abdominal bloating ESTRADA ?Hepatitis C - She was recently seen in the ED in [place] on 12/15/17 with complaints of SOB, increased abdominal bloating and pain. She had a CT Scan Abd/pelvis which revealed a hepatomegaly with fatty infiltration of the liver and nonspecific subtle cutaneous edema in the right abdominal wall subcutaneous tissue. - She reports that she has an appt with GI scheduled for Thursday and she has an Abd US and Carotid US scheduled for Thursday as an outpt. - Pt reports that she just had outpt blood work drawn yesterday for ESTRADA Fibrosure testing and Hepatitis panel which is pending. HTN - Pt takes Triamterene-HCTZ 35.5/25 po daily - This is on hold due to JAMES Fibromyalgia ADDENDUM: - Pts VQ scan is negative. Her BP has improved in the afternoon to 156/72. - Pt is planned for discharge to home. - She has a fu appt already scheduled with Dr. Morrow on Thursday - She has an appt for Carotid US and Abd US on Thursday this coming week - Recommend that the pt discontinue use of her ibuprofen secondary to the JAMES - If 2D echo is not performed prior to discharge this can be ordered to be done as an outpt by her PCP, if not already ordered. - Pt will resume her other home medications, minus the Ibuprofen. The exam, history, and the medical decision-making described in the above note were completed with the assistance of the mid-level provider. I reviewed and agree with the findings presented. I attest that I had a [id number] encounter with the patient on the same day, and personally performed and documented my assessment and findings in the medical record. (2) Dyspnea Code(s): R06.00 - Dyspnea, unspecified Status: Acute (3) Acute kidney injury Code(s): N17.9 - Acute kidney failure, unspecified Status: Acute H&P: Quality - VTE Deep Vein Thrombosis/Pulmonary Embolism Present on Admission: No
[2017-12-26 08:42] LABS: Calcium 8.8 mg/dL (8.5-10.1); Potassium 3.2 meq/L (3.5-5.1)
[2017-12-26] MEDS ORDERED: Gabapentin 300 MG Capsule PO SCH (09:00)
[2017-12-26 12:15] LABS: Bilirubin,Urine Negative (Negative); Clarity,Urine Clear (Clear); Color,Urine Straw (Yellw/Straw); Glucose,Urine (UA) 50 mg/dL (Negative); Leukocyte Esterase,Urine Negative (Negative); Nitrite,Urine Negative (Negative); Specific Gravity,Urine 1.014 (1.002-1.035); Squamous Epithelial Cell,Urine 1 /hpf (0-5)
--- NOTE | 2017-12-26 16:51 | ECG ---
Date Performed: 12/25/2017 Time Performed: 17:56:13 PTAGE: 62 years EKG: Sinus rhythm BASELINE ARTIFACT LIMITING ACCURATE INTERPRETATION NORMAL ECG PREVIOUS TRACING : 12/29/2014 09.12 DOCTOR: Jordin Sharp Interpretating Date/Time 12/26/2017 16:50:16
--- NOTE | 2017-12-26 16:53 | ECG ---
Date Performed: 12/25/2017 Time Performed: 19:49:17 PTAGE: 62 years EKG: Sinus rhythm Since the previous tracing, no significant change noted NORMAL ECG PREVIOUS TRACING : 12/25/2017 17.56 DOCTOR: Jordin Sharp Interpretating Date/Time 12/26/2017 16:51:18
--- NOTE | 2017-12-26 17:05 | NM ---
EXAM DATE: 12/26/2017 4:22 PM EDT AGE/SEX: 62 years / Female INDICATIONS: Dyspnea and elevated d-dimer. CLINICAL DATA: This is the patient's initial encounter. Patient reports that signs and symptoms have been present for 1 day and indicates a pain score of 0/10. MEDICAL/SURGICAL HISTORY: Diabetes mellitus type II. Hypertension. Chronic obstructive pulmon neisha disease. Total knee replacement, left. Discectomy, cervical. COMPARISON: [facility], CHEST 1V SINGLE AP, 12/25/2017. . DOSE: 1.3 mCi Tc99m DTPA aerosol 8.0 mCi Tc99m MAA IV TECHNIQUE: Following five minutes of tidal breathing of DTPA aerosol, planar images of the lungs wer e performed in eight projections. The patient was then injected with MAA, and eight-view perfusion s can was performed. FINDINGS: There is a homogeneous pattern of aerosol delivery to the periphery of both lungs. No focal ventilat ory defects are seen. The perfusion lung scan demonstrates a homogenous pattern of uptake in both lungs. No segmental or s ubsegmental defects are seen. CONCLUSION: 1. Negative examination. Electronically signed by: Roberta Ashley MD 12/26/2017 5:04 PM EDT
== END 2017-12-26 18:25 | disposition home or self-care (01) ==
LOC: NEDA 17:00 → NEPFCDU 17:00 → NEPE 17:00 → NEPFCDU 22:35
PROVIDERS: ADMIT Hospitalist; ATTEND Hospitalist